=== PATIENT | male | born 1965 ===

== ENCOUNTER 2020-07-20 18:44 | Emergency (ER) | payer SELFPAY ==
[2020-07-20] MEDS ORDERED: Boostrix 0.5 ML (Tdap) VIAL ONE ×2 (18:48→18:49)
[2020-07-20] MEDS ORDERED: Fentanyl 100 MCG/2 ML VIAL ONE (18:52)
[2020-07-20 19:04] LABS: #Basophils 0.1 thou/uL (0.0-0.2); #Eosinphils 0.1 thou/uL (0.0-0.7); #Lymphocytes 4.2 thou/uL (1.20-3.40); #Monocytes 0.6 thou/uL (0.11-0.59); #Neutrophils 4.4 thou/uL (1.40-6.50); %Basophils 1.4 % (0.0-1.0); %Eosinophils 1.4 % (0.0-10.0); %Lymphocytes 44.5 % (21.0-51.0); %Monocytes 6.2 % (0.0-10.0); %Neutrophils 46.6 % (42.0-75.0); Hemoglobin 14.7 g/dL (14.0-18.0); Mean Corpuscular HGB CONC 34.1 g/dL (32.0-36.0); Mean Corpuscular Hemoglobin 33.2 pg (27.0-31.0); Mean Corpuscular Volume 97.2 fL (78.0-98.0); Mean Platelet Volume 8.1 fL (7.4-10.4); Platelet Count 218 thou/uL (130-400); RBC Distribution Width 12.1 % (11.5-14.5); Red Blood Cell (RBC) Count 4.42 mill/uL (4.70-6.10); White Blood Cell (WBC) Count 9.5 thou/uL (4.8-10.8)
[2020-07-20 19:12] LABS: PTT 24.3 sec (22.9-36.1); Prothrombin Time 13.5 sec (12.0-14.7)
[2020-07-20 19:24] LABS: ALT (SGPT) 15 U/L (8-55); AST (SGOT) 15 U/L (5-34); Albumin 4.3 g/dL (3.5-5.0); Alkaline Phosphatase 49 U/L (40-110); Anion Gap 19 mmol/L (10-20); BUN (Urea Nitrogen) 14 mg/dL (8.4-25.7); Bilirubin, Total 0.4 mg/dL (0.2-1.2); Calc. Creatinine Clearance 0 mL/min (70-130); Calcium 8.8 mg/dL (7.8-10.44); Carbon Dioxide 17 mmol/L (22-29); Chloride 108 mmol/L (98-107); Globulin 3.3 g/dL (2.4-3.5); Glucose 86 mg/dL (70-105); Potassium 3.7 mmol/L (3.5-5.1); Protein, Total 7.6 g/dL (6.0-8.3); Sodium 140 mmol/L (136-145)
== END 2020-07-20 20:33 | disposition home or self-care (01) ==
LOC: ERS 18:44
DX: S71.131A Puncture wound without foreign body, right thigh, initial encounter (principal); S31.813A Puncture wound without foreign body of right buttock, initial encounter; S71.031A Puncture wound without foreign body, right hip, initial encounter; Z23 Encounter for immunization; W32.0XXA Accidental handgun discharge, initial encounter
CPT/HCPCS: 36415; 80053; 83605; 85025; 85610; 85730; 86850; 86900; 86901; 90471; 90715; 96374; 96375; G0390; J0690; J3010